=== PATIENT | female | born 1985 | race Caucasian/White ===

== ENCOUNTER 2022-11-04 22:46 | Emergency (ER) | payer MEDICAID, SELFPAY ==
[2022-11-04 22:51] VITALS: BP 144/90; PULSE 97; RESP 18; TEMP 35.8; O2SAT 99
[2022-11-04 23:46] LABS: PCR FLU A Negative PCR FLU A (Negative); PCR FLU B Negative PCR FLU B (Negative); PCR RSV Negative PCR RSV (Negative)
[2022-11-04 23:56] LABS: SARS PCR* POSITIVE SARS-CoV-2 (Negative)
--- NOTE | 2022-11-05 01:30 | ED_ITS ---
HPI - General Adult General Chief complaint: Cough Stated complaint: congestion, cough Time Seen by Provider: 11/04/22 22:54 History of Present Illness HPI narrative: 37-year-old woman presenting to the emergency department with complaint of facial pain like she had been punched in the nose. Apparently this did not actually happen. Has tried TheraFlu and other [id number] treatments she has had in the house. Not clearly tried to decongest. has had some cough now as well. Is not frankly short of breath. Related Data Home Medications Medication Instructions Recorded Confirmed cyclobenzaprine 10 mg tablet 5 - 10 mg PO .QHS PRN 04/02/22 09/14/22 ibuprofen 800 mg tablet 800 mg PO TID PRN 04/02/22 09/14/22 Previous Rx's Medication Instructions Recorded hydrocortisone 1 % topical cream 1 applic topical BID PRN rash 09/14/22 #28.4 grams amoxicillin 875 mg tablet 875 mg PO BID 12 days #24 tabs 11/04/22 Allergies Allergy/AdvReac Type Severity Reaction Status Date / Time No Known Drug Allergies Allergy Verified 09/14/22 16:38 Review of Systems Status of ROS: Reports: 6 or more systems reviewed and unremarkable except as noted in History and below [facility] Medical History (Updated 11/09/22 @ 12:20 by Sher Baires MD) Bright red blood per rectum ?K62.5 - Hemorrhage of anus and rectum (ICD-10) Encounter for removal of intrauterine contraceptive device (IUD) ?Z30.432 - Encounter for removal of intrauterine contraceptive device (ICD- 10) Surgical History (Updated 11/07/22 @ 19:09 by Beau Rodriguez) History of bilateral salpingectomy ?Z90.79 - Acquired absence of other genital organ(s) (ICD-10) History of laparoscopic appendectomy (~06/2020) ?Z90.49 - Acquired absence of other specified parts of digestive tract (ICD- 10) History of laparoscopy ?Z98.890 - Other specified postprocedural states (ICD-10) Status post laparoscopic hysterectomy (~04/2020) ?Z90.710 - Acquired absence of both cervix and uterus (ICD-10) Social History (Updated 11/07/22 @ 19:09 by Beau Rodriguez) Narrative: 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 No erythema or swelling. Occasional rough cough. Sounds a little congested in the nasopharynx. Pleasant. NAD. Well perfused peripherally. Skin is warm and dry without rash on visible skin. Cranial nerves 2-12 intact. Lungs are clear. Heart with elevated rate but in regular rhythm. Oropharynx is moist with some mild erythema in the far posterior but without clear cobblestoning. Neck is supple without lymphadenopathy. TMs are clear. Const: Vital Signs, click to edit/add: Vital Signs - 24 hr 11/04/22 22:51 Temperature 96.5 F L Pulse Rate [Right Pulse Oximeter] 97 Respiratory Rate 18 Blood Pressure [Le ft Upper Arm] 144/90 H Pulse Oximetry 99 Oxygen Delivery Me thod Room Air Documenting provider has reviewed patient's vital signs: yes Course Vital Signs Vital signs: Initial Vital Signs Temperature 96.5 F L 11/04/22 22:51 Temperature Source Temporal Artery Scan 11/04/22 22:51 Pulse Rate 97 11/04/22 22:51 Pulse Rhythm Regular 11/04/22 22:51 Respiratory Rate 18 11/04/22 22:51 Blood Pressure 144/90 H 11/04/22 22:51 Blood Pressure Mean 108 11/04/22 22:51 Blood Pressure Position Sitting 11/04/22 22:51 Pulse Oximetry 99 11/04/22 22:51 Oxygen Delivery Method Room Air 11/04/22 22:51 Vital Signs Temperature 96.5 F L 11/04/22 22:51 Pulse Rate 97 11/04/22 22:51 Respiratory Rate 18 11/04/22 22:51 Blood Pressure 144/90 H 11/04/22 22:51 Pulse Oximetry 99 11/04/22 22:51 Oxygen Delivery Method Room Air 11/04/22 22:51 Temperature 96.5 F L 11/04/22 22:51 Pulse Rate 97 11/04/22 22:51 Respiratory Rate 18 11/04/22 22:51 Blood Pressure 144/90 H 11/04/22 22:51 Pulse Oximetry 99 11/04/22 22:51 Oxygen Delivery Method Room Air 11/04/22 22:51 Medical Decision Making MDM Narrative Medical decision making narrative: Discussion of treatment, she would very much appreciate a cough medication as would really welcome sleep. This seems to be a sinusitis not yet a sinus infection. I do not think pneumonia is the issue here. Will be given prednisone from [facility] along with a codeine-containing cough syrup after discussion of options. Departed pending triple screen. Results of which would not change treatment at this time given duration of illness. See patient discharge plan Lab Data Lab results reviewed: Yes I reviewed the patient's lab results Labs: Lab Results 11/04/22 Range/Units 23:00 SARS-CoV-2 (PCR) POSITIVE SARS-CoV-2 A (Negative) Influenza Type A (PCR) Negative PCR FLU A (Negative) Influenza Type B (PCR) Negative PCR FLU B (Negative) RSV (PCR) Negative PCR RSV (Negative) Discharge Plan Discharge Clinical Impression: URI (upper respiratory infection), Cough, Sinusitis, COVID-19 Patient Disposition: Home, Self-Care Condition: Stable Additional Instructions: Focus on hydration. Sleep under the mist of a cool mist humidifier. Menthol vapors might be helpful. Can take 600-800 mg of ibuprofen per dose or up to 1000 mg of acetaminophen per dose. Anesthetic throat lozenges or sprays like Sucrets or Chloraseptic might be helpful. Sucking on ice chips might also be helpful with the cough. I would get yourself some 12 hour pseudoephedrine for drying/decongestion. I tend to take it every 10 hours or so if really needed. I am hopeful that between this and the prednisone from [facility], you should be feeling better in a couple of days. If not improved, antibiotic prescription will be waiting at your pharmacy. Cough syrup also from [facility]. Take 60 mg of prednisone for the 1st dose then 40 mg daily days 2 through 5. We will call you if any of your tests are positive. Prescriptions: New amoxicillin 875 mg tablet 875 mg PO BID 12 Days Qty: 24 0RF No Action hydrocortisone 1 % cream 1 applic topical BID PRN (Reason: rash) Qty: 28.4 0RF cyclobenzaprine 10 mg tablet 5 - 10 mg PO .QHS PRN ibuprofen 800 mg tablet 800 mg PO TID PRN Follow Up/Referrals: Sonali Gregg DNP [Nurse Practitioner] - Stand Alone Forms: [employer] Info Instructions
== END 2022-11-04 23:25 | disposition home or self-care (01) ==
PROVIDERS: Emergency Provider Family Medicine; PCP Family Medicine
DX: U07.1 COVID-19 (principal); J32.9 Chronic sinusitis, unspecified; J06.9 Acute upper respiratory infection, unspecified; R05.9 Cough, unspecified
CPT/HCPCS: 87502; 87634; 87635; 99283; 99284

== ENCOUNTER 2023-05-27 16:08 | Outpatient (CLI) | payer MEDICAID, SELFPAY | END 2023-05-27 16:09 | disposition home or self-care (01) | PROVIDERS: PCP Family Medicine; Visit Provider Family Medicine | DX: Z00.00 Encounter for general adult medical examination without abnormal findings (principal); R53.83 Other fatigue; Z13.6 Encounter for screening for cardiovascular disorders | CPT/HCPCS: 80053; 80061; 84443 ==

== ENCOUNTER 2023-07-05 07:31 | Outpatient (RCR) | payer BC, SELFPAY | END 2023-09-09 15:30 | disposition home or self-care (01) | PROVIDERS: PCP Family Medicine; Visit Provider Family Medicine | DX: M54.50 Low back pain, unspecified (principal); M54.2 Cervicalgia; M25.512 Pain in left shoulder; M79.602 Pain in left arm; R53.1 Weakness; M25.812 Other specified joint disorders, left shoulder; Z51.89 Encounter for other specified aftercare | CPT/HCPCS: 97110; 97161 ==

== ENCOUNTER 2023-08-17 20:20 | Emergency (ER) | payer BC, SELFPAY ==
[2023-08-17 20:53] VITALS: BP 128/83; PULSE 80; RESP 18; TEMP 37.1; O2SAT 97
[2023-08-17 21:47] LABS: PCR FLU A Negative PCR FLU A (Negative); PCR FLU B Negative PCR FLU B (Negative); PCR RSV Negative PCR RSV (Negative)
[2023-08-17 21:51] LABS: SARS PCR* Negative SARS-CoV-2 (Negative)
--- NOTE | 2023-08-17 22:31 | CRLHL7_ITS ---
For Patients: As a result of the Century Cures Act, medical imaging exams and procedure reports are released immediately into your electronic medical record. You may view this report before your referring provider. If you have questions, please contact your health care provider. INDICATION: Headache, neck pain. TECHNIQUE: CTA head with contrast bolus tracking, 3D angiographic rendering using maximum intensity projection (MIP) and images permanently archived. FINDINGS: There is normal opacification of the intracranial vasculature. There is no large vessel occlusion. No aneurysm is identified. IMPRESSION: Unremarkable head CTA. Please note that all CT scans at this facility use dose modulation, iterative reconstruction, and/or weight-based dosing when appropriate to reduce radiation dose to as low as reasonably achievable. Dictated by Richard Ward MD @ 08/18/2023 7:35:21 AM (Electronically Signed)
--- NOTE | 2023-08-17 22:31 | CRLHL7_ITS ---
For Patients: As a result of the Century Cures Act, medical imaging exams and procedure reports are released immediately into your electronic medical record. You may view this report before your referring provider. If you have questions, please contact your health care provider. INDICATION: Headache, neck pain TECHNIQUE: CT Head without i.v. contrast. Coronal and sagittal reformats were obtained. COMPARISON: 08/20/2021 FINDINGS: CSF space: The ventricles are normal for age. Brain: No evidence of mass, acute infarction or hemorrhage is seen. No mass-effect or midline shift is seen. The brain parenchyma is otherwise normal in appearance with preservation of the carrington-white matter junction. Calvarium: The visualized paranasal sinuses are well aerated. The mastoid air cells are clear. The visualized orbits are grossly unremarkable. The calvarium is unremarkable in appearance with no fractures identified. IMPRESSION: 1. No evidence of acute infarction, intracranial hemorrhage, or mass-effect seen. Please note that all CT scans at this facility use dose modulation, iterative reconstruction, and/or weight-based dosing when appropriate to reduce radiation dose to as low as reasonably achievable. Dictated by: Ananth Benson MD @ 08/18/2023 00:31:26 (Electronically Signed)
--- NOTE | 2023-08-17 22:31 | CRLHL7_ITS ---
For Patients: As a result of the Century Cures Act, medical imaging exams and procedure reports are released immediately into your electronic medical record. You may view this report before your referring provider. If you have questions, please contact your health care provider. INDICATION: Headache, neck pain. TECHNIQUE: CTA neck with contrast bolus tracking, 3D angiographic rendering using maximum intensity projection (MIP) and images permanently archived. FINDINGS: There is no significant carotid artery stenosis or dissection. There is no significant vertebral artery stenosis or dissection. The cervical spine is in normal alignment. IMPRESSION: 1. No significant carotid or vertebral artery stenosis or dissection. 2. Per preliminary report: Bilateral jugular adenopathy seen with lymph nodes measuring up to 11 mm. Please note that all CT scans at this facility use dose modulation, iterative reconstruction, and/or weight-based dosing when appropriate to reduce radiation dose to as low as reasonably achievable. Dictated by Richard Ward MD @ 08/18/2023 7:36:20 AM (Electronically Signed)
--- NOTE | 2023-08-17 22:50 | ED_ITS ---
HPI - General Adult General Date Seen: 08/17/23 Chief complaint: Headache/Migraine Stated complaint: Severe Headache/pain radiates down neck Time Seen by Provider: 08/17/23 21:28 History of Present Illness HPI narrative: This is a 31 than year old female who is generally healthy. She does have a past history stress, anxiety, low back pain but no other long-term medical conditions such as cancer, diabetes, hypertension or headache syndrome. She presents to the ER today for headache and neck discomfort. She has had a headache for at least 3 days, possibly a little longer. It began gradually a few days ago. No antecedent symptoms such as recent URI. No head trauma. The no fever. No antecedent nasal congestion or symptoms of sinusitis. Her children live with her and they are not sick. She has a all functioning carbon monoxide detector that has not been alarming. About 3 days ago the headache was definitely significant and work across the entire front and top of her head, affecting both sides. Sometimes it gets worse such as when she bends over. It has been getting steadily worse every day since then. She tried to take some ibuprofen for her headache a couple of days ago when she took her daughter to a ski event but it did not really help. She does not really have a cough. Sometimes with the pain severe she feels nauseous which is not vomiting. She has developed some photophobia. No phonophobia. Hearing normal. No focal numbness or weakness in her arms or legs. Sometimes she feels like the pain radiates down the front of her throat in her neck and sometimes on the back of her neck. Although her neck hurts, it is not stiff. She has normal range of motion. She also endorses substantial psychosocial stress. She is going through some strife with her ex related to her children. However she does not relate her headache to that stress. Related Data Previous Rx's Medication Instructions Recorded lorazepam 0.5 mg tablet 0.25 - 0.5 mg (0.5 - 1 x 0.5 mg) 05/27/23 PO QDAY PRN anxiety #14 tabs fluoxetine 10 mg capsule (Prozac) 10 mg PO QDAY #60 caps 06/23/23 fluoxetine 20 mg capsule 20 mg PO QDAY #90 caps 07/13/23 Allergies Allergy/AdvReac Type Severity Reaction Status Date / Time No Known Drug Allergies Allergy Verified 07/13/23 15:39 [facility] Medical History (Updated 08/18/23 @ 00:43 by Tra Martell MD) Lumbar back pain ?M54.50 - Low back pain, unspecified (ICD-10) Depression (12/2022) ?F32.A - Depression, unspecified (ICD-10) Vertigo ?R42 - Dizziness and giddiness (ICD-10) Bright red blood per rectum ?K62.5 - Hemorrhage of anus and rectum (ICD-10) Surgical History (Updated 05/27/23 @ 16:28 by Tiffani Martin MD) History of cholecystectomy (2005) ?Z90.49 - Acquired absence of other specified parts of digestive tract (ICD- 10) Encounter for removal of intrauterine contraceptive device (IUD) ?Z30.432 - Encounter for removal of intrauterine contraceptive device (ICD- 10) Status post laparoscopic hysterectomy (~04/2020) ?Z90.710 - Acquired absence of both cervix and uterus (ICD-10) History of laparoscopic appendectomy (~06/2020) ?Z90.49 - Acquired absence of other specified parts of digestive tract (ICD- 10) History of bilateral salpingectomy (2015) ?Z90.79 - Acquired absence of other genital organ(s) (ICD-10) History of laparoscopy ?Z98.890 - Other specified postprocedural states (ICD-10) Family History (Updated 05/27/23 @ 16:29 by Tiffani Martin MD) Uncle Lung cancer Social History (Updated 05/27/23 @ 16:30 by Tiffani Martin MD) Narrative: 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, 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, 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[place], 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, lives in [place] Lifetime nonsmoker Average 1 alcoholic drink a week Exercise walking and biking 4 times a week No drug use Smoking Status: Never smoker Do you use any of these nicotine containing products: None How often do you have a drink containing alcohol: monthly or less How often do you have six or more drinks on one occasion: Less than monthly AUDIT-C Alcohol total score: 2 Non-prescribed substance use: denies use Little interest or pleasure in doing things: not at all Feeling down, depressed, or hopeless: several days Exam Narrative: Exam Narrative: Constitutional: Appears well-developed and well-nourished. Alert. Conversant. Non toxic. HENT: Head: Atraumatic. No depressed skull fracture, Raccoon Eyes, Parker's sign, or hemotympanum. Face normal. TMs normal Nose: Nose normal. No purulent drainage. No sinus tenderness. Mouth/Throat: Oral mucosa is clear and moist. no trismus. Pharynx normal. Tonsils symmetric. No tonsillar enlargement, erythema, or exudate. Eyes: Conjunctivae normal. EOM normal. Pupils equal, round, and reactive to light. No scleral icterus. Neck: Normal range of motion. Neck supple. No tracheal deviation present. Cardiovascular: Normal rate, regular rhythm. No gallop. No friction rub. No mur mur heard. Symmetric radial artery pulses Pulmonary/Chest: Effort normal. No stridor. No respiratory distress. No wheezes. No rales. No rhonchi . No tenderness. Abdominal: Soft. Bowel sounds normal. No distension. No mass. No tenderness. No rebound. No guarding. Musculoskeletal: RUE: Normal range of motion. No tenderness. No deformity LUE: Normal range of motion. No tenderness. No deformity RLE: Normal range of motion. No edema. No tenderness. No deformity LLE: Normal range of motion. No edema. No tenderness. No deformity Lymph: No cervical adenopathy. Neurological: Mental status normal. Attention normal. Alert and oriented x3. GCS 15. Memory normal. Speech fluent. Cognition normal. Cranial Nerves intact II-XII except I did not formally test gag or visual acuity. EOMI. Palate elevates symmetrically and tongue protrudes in the midline. Strength: 5/5 trapezius on the right and left 5/5 deltoid on the right and left 5/5 biceps on the right and left 5/5 triceps on the right and left 5/5 irrigation equipment installer on the right and left 5/5 thumb opposition on the right and le ft 5/5 finger abduction on the right and le ft 5/5 hip flexors (L3) on the right and le ft 5/5 quadriceps (L4) on the right and lef t 5/5 tibialis anterior on the right and l eft 5/5 EHL (L5) on the right and left 5/5 gastrocnemius (S1) on the right and left 5/5 hamstring on the right and left Sensation intact to light touch in both upper extremities (C4-T1) Sensation intact to light touch in Both lower extremities (L4-S1). Finger to nose and coordination normal Skin: Skin is warm and dry. No rash noted. No pallor. Normal capillary refill. Psychiatric: Normal mood. Normal affect. Const: Vital Signs, click to edit/add: Vital Signs - 24 hr 08/17/23 20:53 Temperature 98.7 F Pulse Rate [Pulse Oximeter] 80 Respiratory Rate 18 Blood Pressure [Ri ght Upper Arm] 128/83 Pulse Oximetry 97 Oxygen Delivery Me thod Room Air Course Course ED Course: Recheck-headache much improved after Toradol and Reglan. Resting in her ER chair in room 4. Vital Signs Vital signs: Initial Vital Signs Temperature 98.7 F 08/17/23 20:53 Temperature Source Temporal Artery Scan 08/17/23 20:53 Pulse Rate 80 08/17/23 20:53 Respiratory Rate 18 08/17/23 20:53 Blood Pressure 128/83 08/17/23 20:53 Blood Pressure Mean 98 08/17/23 20:53 Blood Pressure Position Sitting 08/17/23 20:53 Pulse Oximetry 97 08/17/23 20:53 Oxygen Delivery Method Room Air 08/17/23 20:53 Vital Signs Temperature 98.7 F 08/17/23 20:53 Pulse Rate 80 08/17/23 20:53 Respiratory Rate 18 08/17/23 20:53 Blood Pressure 128/83 08/17/23 20:53 Pulse Oximetry 97 08/17/23 20:53 Oxygen Delivery Method Room Air 08/17/23 20:53 Temperature 98.7 F 08/17/23 20:53 Pulse Rate 80 08/17/23 20:53 Respiratory Rate 18 08/17/23 20:53 Blood Pressure 128/83 08/17/23 20:53 Pulse Oximetry 97 08/17/23 20:53 Oxygen Delivery Method Room Air 08/17/23 20:53 Medications Administered Medications: Discontinued Medications Generic Name Dose Route Start Last Admin Trade Name Freq PRN Reason Stop Dose Admin Ketorolac Tromethamine 15 mg 08/17/23 22:31 08/17/23 23:15 Ketorolac 15 Mg/Ml Inj IVP 08/17/23 22:32 15 mg ONCE ONE Administration Metoclopramide HCl 10 mg 08/17/23 22:31 08/17/23 23:15 Metoclopramide Hcl 5 Mg/Ml Inj IVP 08/17/23 22:32 10 mg ONCE ONE Administration Medical Decision Making MDM Narrative Medical decision making narrative: Ths patient presents with a headache. A broad differential diagnosis was considered including tension, migraine, analgesic rebound, occipital neuralgia, etc. Other less common but serious causes considered included meningitis, encephalitis, subarachnoid bleed, stroke, tumor, etc. patient is much worse than the patient's previous headache. She does not really have a pattern of similar headaches in the past. However was not abrupt in onset or maximal and within 1 hour of onset. Actually involved gradually worsening over a few days. Patient reports that the headache is sometimes worse when she bends over, but not worse with standing to suggest a dural leak headache. No associated with a fever. Although she endorses sometimes the pain from her head it radiates down into her neck she does not actually have neck stiffness or meningismus. White count normal. At this point very low suspicion for meningitis. No concern for carbon monoxide exposure. No recent head trauma to suggest concussion. She has no history of hypercoagulability to raise risk for dural sinus thrombosis. No focal deficits to suggest stroke. With headache associated with neck pain any on female consider possible cervical artery dissection. Head CT and CT are ordered. Head CT scan is normal. CT angiogram shows no vascular abnormality such as cervical artery dissection, aneurysmal disease, or carotid stenosis. CT scan does show adenopathy in the neck which likely would correspond to the patient's neck pain. She is not having any significant pharyngitis or signs of strep. Consider possible mono. Would hold off on Monospot for now given the early course in her illness and high likelihood of false negative today. Discussed with the plan of care. Patient is agreeable to discharge home and will follow-up if ongoing or worsening symptoms. Patients questions were answered and they feel improved after above interventions in ED. Supportive outpatient management is therefore indicated. Headache precautions given for home. Lab Data Labs: Lab Results 08/17/23 08/17/23 Range/Units 20:55 23:05 WBC 9.10 (4.50-11.00) K/uL RBC 4.35 (4.00-5.20) m/uL Hgb 13.0 (12.0-16.0) gm/dL Hct 39.3 (33.0-51.0) % MCV 90 (80-100) fL MCH 30 (26-34) pg MCHC 33 (32-36) gm/dL RDW Coeff of Emanuel 12.1 (11.5-15.5) % Plt Count 377 (140-440) K/uL Neut % (Auto) 66.9 (42.0-72.0) % Lymph % (Auto) 20.8 (20-44) % [place] % (Auto) 9.5 (0.0-11.0) % Eos % (Auto) 1.9 (0.0-7.0) % Baso % (Auto) 0.4 (0.0-3.0) % Neut # (Auto) 6.09 (1.7-7.0) K/uL Lymph # (Auto) 1.89 (0.90-2.90) K/uL [place] # (Auto) 0.90 (0.00-0.90) K/UL Eos # (Auto) 0.17 (0.00-0.50) K/uL Baso # (Auto) 0.04 (0.00-0.30) K/uL Abs Immat Gran (auto) 0.05 (0.00-0.30) K/uL Imm/Tot Granulo (auto) 0.5 % Sodium 139 (135-149) mmol/L Potassium 3.8 (3.6-5.1) mmol/L Chloride 103 (96-114) mmol/L Carbon Dioxide 29 (20-32) mmol/L Anion Gap 7 (7-15) mEq/L BUN 11 (5-24) mg/dL Creatinine 0.6 (0.5-1.5) mg/dL Estimated GFR 118 ml/min Glucose 90 (60-115) mg/dL Calcium 9.7 (8.4-10.6) mg/dL C-Reactive Protein 6.9 H (0.5-1.0) mg/dL HCG, Qual Negative (Negative) SARS-CoV-2 (PCR) Negative SARS-CoV-2 (Negative) Influenza Type A (PCR) Negative PCR FLU A (Negative) Influenza Type B (PCR) Negative PCR FLU B (Negative) RSV (PCR) Negative PCR RSV (Negative) Imaging Data CT scan - head: Attestation: I have reviewed the pertinent imaging results. Radiologist's impression: IMPRESSION: 1. No evidence of acute infarction, intracranial hemorrhage, or mass-effect seen. CT angio head and neck: Attestation: I have reviewed the pertinent imaging results. Radiologist's impression: PRELIMINARY IMPRESSION: 1. The [place] is unremarkable with no significant stenosis, occlusion, or aneurysm identified. 2. The neck vessels shows no evidence of dissection, significant stenosis or occlusion in the common or internal carotid arteries, vertebral arteries, or visualized great vessels of the chest. 3. Bilateral jugular adenopathy seen with lymph nodes measuring up to 11 mm. Discharge Plan Discharge Clinical Impression: Headache Patient Disposition: Home, Self-Care Condition: Stable Instructions: Acute Headache (DC) Prescriptions: No Action fluoxetine 20 mg capsule 20 mg PO QDAY Qty: 90 1RF lorazepam 0.5 mg tablet 0.25 - 0.5 mg PO QDAY PRN (Reason: anxiety) Qty: 14 0RF fluoxetine [Prozac] 10 mg capsule 10 mg PO QDAY Qty: 60 0RF Follow Up/Referrals: Tiffani Martin MD [Primary Care Provider] - Stand Alone Forms: [facility] Info Instructions
[2023-08-17] MEDS: METOCLOPRAMIDE HCL 5 MG/ML INJ 10 MG IVP (23:15)
[2023-08-17] MEDS: KETOROLAC 15 MG/ML inj IVP (23:15)
[2023-08-17 23:21] LABS: Basophils Absolute Auto 0.04 K/uL (0.00-0.30); Basophils Percent Auto 0.4 % (0.0-3.0); Eosinophils Absolute Auto 0.17 K/uL (0.00-0.50); Eosinophils Percent Auto 1.9 % (0.0-7.0); Hematocrit 39.3 % (33.0-51.0); Immature Granulocytes Abs Auto 0.05 K/uL (0.00-0.30); Immature Granulocytes Pct Auto 0.5 %; Lymphocytes Absolute Auto 1.89 K/uL (0.90-2.90); Lymphocytes Percent Auto 20.8 % (20-44); Mean Corpuscular HGB Conc 33 gm/dL (32-36); Mean Corpuscular Hemoglobin 30 pg (26-34); Mean Corpuscular Volume 90 fL (80-100); Monocytes Percent Auto 9.5 % (0.0-11.0); Neutrophils Absolute Auto 6.09 K/uL (1.7-7.0); Neutrophils Percent Auto 66.9 % (42.0-72.0); Platelet Count* 377 K/uL (140-440); RDW Coefficient of Variation % 12.1 % (11.5-15.5); Red Blood Count 4.35 m/uL (4.00-5.20)
[2023-08-17 23:24] LABS: Chloride* 103 mmol/L (96-114); Potassium* 3.8 mmol/L (3.6-5.1); Sodium* 139 mmol/L (135-149)
[2023-08-17 23:26] LABS: Creatinine* 0.6 mg/dL (0.5-1.5); Estimated Glomerular Filt Rate 118 ml/min
[2023-08-17 23:27] LABS: Anion Gap 7 mEq/L (7-15); Blood Urea Nitrogen* 11 mg/dL (5-24); Calcium* 9.7 mg/dL (8.4-10.6); Carbon Dioxide* 29 mmol/L (20-32); Glucose* 90 mg/dL (60-115); Slide Review Reflex No
[2023-08-17 23:30] LABS: C Reactive Protein* 6.9 mg/dL (0.5-1.0)
[2023-08-17 23:33] LABS: HCG Qualitative Serum* Negative (Negative)
== END 2023-08-18 01:14 | disposition home or self-care (01) ==
PROVIDERS: Emergency Provider Emergency Medicine; PCP Family Medicine
DX: R51.9 Headache, unspecified (principal)
CPT/HCPCS: 36415; 70450; 70496; 70498; 80048; 84703; 85025; 86140; 87631; 96374; 96375; 99284; 99285; J1885; J2765; Q9967

== ENCOUNTER 2024-11-06 22:34 | Emergency (ER) | payer OTHER, SELFPAY ==
--- OUTSIDE RECORDS SUMMARY | 2024-11-06 22:37 | XMS_ITS | Clinical Summary ---
Author Organization [facility] Address [address] [place] [address]. [place] [address] Care Team Providers Care Rn Acls Name Role Phone No Ref-Primary, Physician Primary Care Provider Allergies No known active allergies Medications No known medications Social History Tobacco Use Types Packs/Day Years Used Date Smoking Tobacco: Never Assessed Comments Unknown Sex and Gender Information Value Date Recorded Sex Assigned at Not on file Legal Sex Female 10:14 AM TECHNICAL ADJUSTER Gender Identity Not on file Sexual Orientation Not on file Last Filed Vital Signs Vital Sign Reading Time Taken Comments Blood Pressure 135/89 07/26/2019 12:55 AM TECHNICAL ADJUSTER Pulse 111 07/26/2019 12:55 AM TECHNICAL ADJUSTER Temperature 36.8 C (98.2 F) 07/25/2019 9:41 PM TECHNICAL ADJUSTER Respiratory Rate 16 07/25/2019 9:41 PM TECHNICAL ADJUSTER Oxygen Saturation 96% 07/26/2019 12:56 AM TECHNICAL ADJUSTER Inhaled Oxygen Concentration - - Weight - - Height - - Body Mass Index - - Plan of Treatment Not on file Care Teams Rn Acls Relationship Specialty Start Date End Date No Ref-Primary, Physician PCP - General 07/26/19
--- OUTSIDE RECORDS SUMMARY | 2024-11-06 22:37 | XMS_ITS | Clinical Summary ---
Author Organization [facility] Address [address] [place] [address] Care Team Providers Care Rugby Union Footballer Name Role Phone Yasemin Olson MD Primary Care Provider [phone]- [phone] Allergies No known active allergies Medications No known medications Active Problems Problem Noted Date Diagnosed Date Mechanical complication of i ntrauterine contraceptive device 08/02/2015 Resolved Problems Problem Noted Date Diagnosed Date Resolved Date Supervision of other normal 08/17/2012 01/20/2013 Supervision of other normal 07/27/2012 07/27/2012 Positive test 07/27/201202/2013 Overview (07/27/2012): ESSURE present, referral to [facility] for evaluation. Other complications due to g enitourinary device, implant, and graft 07/17/2006 07/25/2012 Immunizations Immunization Administration Dates Next Due DTP 04/06/1991, 8,1986,1986, 1986 Hepatitis B (Peds) 01/30/2002,09/19/2001, 001 Influenza, IIV3 (Age >=3 years) 06/25/2006 MMR 04/23/1998,07/04/1987 Oral Polio Vaccine 03/19/1988,1986, 987,1986 Td (Age >=7 Years) 04/23/1998 Tdap 2011 Family History Relation Name Status Comments Daughter 1 Alive Daughter 2 Alive Father Alive Mother Alive Son Alive Social History Tobacco Use Types Packs/Day Years Used Date Smoking Tobacco: Never Smokeless Tobacco: Never Tobacco Cessation:Counseling Given: Yes Alcohol Use Standard Drinks/Week Comments No 0 (1 standard drink = 0.6 oz pur e alcohol) Comments No Sex and Gender Information Value Date Recorded Sex Assigned at Not on file Legal Sex Female 5:20 AM CUSTOMER DEVELOPMENT MANAGER Gender Identity Not on file Sexual Orientation Not on file Occupation Industry Job Start Date Job End Date 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 Not on file Not on file Not on file Obstetrics History Para Term AB IAB SAB Ectopic Multiple Livin g Live Births 3 2 2 0 1 1 0 0 0 Date Outcome GA Total Labor Labor/2nd/3rd Weight Sex Type Anes PTL Fifi A1 A5 Name Clin 006 Term 37w0 d 2.32 kg (5 lb 2 oz) Vag Comments:oligo, IUGR 009 Term 39w0 d 3.09 kg (6 lb 13 oz) Vag 2012 IAB Last Filed Vital Signs Vital Sign Reading Time Taken Comments Blood Pressure 107/73 01/08/2016 1:30 PM CDT tow er Pulse 77 01/08/2016 1:30 PM CDT Temperature 36.8 C (98.2 F) 01/08/2016 1:30 PM CDT Respiratory Rate 16 06/07/2015 12:01 PM CDT Oxygen Saturation 100% 01/08/2016 1:30 PM CDT Inhaled Oxygen Concentration - - Weight 66 kg (145 lb 6.4 oz) 01/08/2016 1:30 PM CDT Height 157.5 cm (5' 2) 01/08/2016 1:30 PM CDT Body Mass Index 26.59 01/08/2016 1:30 PM CDT Plan of Treatment Health Maintenance Due Date Last Done Comments Hepatitis C screening for age 18-79 2004 BMI (ht and wt on same day) for age 18+ 01/07/2017 01/08/2016 Depression screening for age 12+ 01/07/2017 01/08/2016 Tetanus booster 2021 2011, 04/23/1998 Pap test for age 21-65 02/19/2023 0, 02/20/2020, 03/12/2015, Additional history exists COVID-19 vaccine series (2023- season) 2024 Influenza Vaccine (#1) 2024 06/25/2006 HIV for age 15-65 Completed 08/03/2008 Tdap Completed 2011 Pneumococcal series for age 6-49 Aged Out No longer eligible based on patient's age to complete this topic Procedures Procedure Name Priority Date/Time Associated Diagnosis Comments BIOFUELS PROCESSING TECHNICIAN THIN PREP PAP SCREEN IMAGED Routine 02/20/2020 8:15 AM CDT ANTI HIV 1/2 Routine 08/03/2008 1:48 PM CUSTOMER DEVELOPMENT MANAGER Supervision of Other Normal from Last 3 Months or Most Recently Relevant to Health Maintenance Results * BIOFUELS PROCESSING TECHNICIAN THIN PREP PAP SCREEN IMAGED (02/20/2020 8:15 AM CDT) Case Report Gynecologic Cytology Report Case: [id number] Authorizing Provider: Love Burris PA-C Collected: 02/20/2020 0815 Ordering Location: [facility] Received: 02/21/2020 1528 First Screen: Andrew Guillory Rescreen: Rafaela Ferreira Pathologist: Dana lOson MD Specimen: BIOFUELS PROCESSING TECHNICIAN ThinPrep Vial Screening, Cervical/Vaginal 02/27/2020 11:30 AM CDT [facility] INTERPRETATION/ RESULT NEGATIVE FOR INTRAEPITHELIAL LESION OR MALIGNANCY (NIL) (none) 02/27/2020 11:30 AM CDT [facility] R NON-NEOPLASTIC FINDING(S) Reactive cellular changes associated with inflammation/repa ir 02/27/2020 11:30 AM CDT [facility] ORGANISM(S) Fungal organisms morphologically consistent with Laura species Shift in jeanine suggestive of bacterial vaginosis 02/27/2020 11:30 AM CDT [facility] SPECIMEN ADEQUACY Satisfactory for evaluation No endocervical component seen 02/27/2020 11:30 AM CDT [facility] Date of LMP 02/06/2020 02/27/2020 11:30 AM CDT [facility] Last Pap Date 04/23/2014 02/27/2020 11:30 AM CDT [facility] Last Pap Result NIL 0 11:30 AM CDT [facility] Additional Information 02/27/2020 11:30 AM CDT [facility] Comment: Interpreted at [facility], Central Laboratory - [address], [place] [address] Automated Review Successful 02/27/2020 11:30 AM CDT [facility] Comment:Specimen processed s uccessfully by automated conductor and engineer device, ThinPrep Imaging System, [employer] Note The pap test is a screening technique, not a diagnostic procedure. It is used primarily to screen for squamous cancers and precursor lesions. Published studies have shown that it is subject to both false negative and false positive results. The pap test should not be used as the sole means to diagnose or exclude pre-malignant and malignant lesions. 02/27/2020 11:30 AM CDT [facility] Other (Cervical/Vagina l) 02/20/2020 8:15 AM CDT 02/21/2020 3:28 PM CDT us November L [place] [facility] PATH[facility]/CYTOLOGY Final R esult [facility] [address] [place] [address], [place] * ANTI HIV 1/2 [81893.0] (08/03/2008 1:48 PM CUSTOMER DEVELOPMENT MANAGER) ANTI HIV 1/2 Non-reacti ve [facility] Blood specimen (specimen) BLOOD SPECIMEN / Unknown 08/03/2008 1:48 PM CUSTOMER DEVELOPMENT MANAGER 08/03/2008 1:39 PM CUSTOMER DEVELOPMENT MANAGER Yasemin Olson MD SEND OUTS Final Resu lt [facility] INTERNAL ZIP [phone] [address] from Last 3 Months or Most Recently Relevant to Health Maintenance Care Teams Rugby Union Footballer Relationship Specialty Start Date End Date Yasemin Olson MD [address] [place] [address] PCP - General Family Practice 06/07/15
[2024-11-06 22:46] VITALS: BP 142/94; PULSE 98; RESP 20; TEMP 36.4; O2SAT 98
--- NOTE | 2024-11-06 22:51 | ED_ITS ---
HPI - General Adult General Chief complaint: Cough Stated complaint: chest hurts/difficulty breathing/cough Time Seen by Provider: 11/06/24 22:35 History of Present Illness HPI narrative: Arrives with complaints of chest pain, SOB , and cough for 5 days. Alert and oriented, ABCs intact. 39-year-old woman presenting to the emergency department with concern of head tightness in her chest more on the left side. This is kind of been going on for 5 days but much worse today. Initially she just thought maybe it was some anxiety. She feels more short of breath with exertion. Can feel lightheaded or dizzy when she goes to stand up. Tends not to want to lie all the way back as she thought might be some things going on with my lungs that would be maybe more of a problem. No fever. Today just things escalated and also feels like her voice is going. Does have some pain in her left leg/hip but she says this is a chronic thing. Her back was all messed up she says having gone to the chiropractor today. Otherwise she has not been experiencing new leg pain or swelling. This pain can be particularly bad with raising and abducting her leg on the left Related Data Previous Rx's ?Medication ?Instructions ?Recorded azithromycin 250 mg tablet See Rx Instructions PO .COMPLEX #6 06/07/24 tabs codeine 10 mg-guaifenesin 100 mg/5 5 - 10 ml PO .QHS PRN cough #200 mL 06/07/24 mL oral liquid Allergies Allergy/AdvReac Type Severity Reaction Status Date / Time No Known Drug Allergies Allergy Verified 11/06/24 22:50 Review of Systems Status of ROS: Reports: 6 or more systems reviewed and unremarkable except as noted in History and below [facility] Medical History Lumbar back pain ?M54.50 - Low back pain, unspecified (ICD-10) Depression (12/2022) ?F32.A - Depression, unspecified (ICD-10) Vertigo ?R42 - Dizziness and giddiness (ICD-10) Bright red blood per rectum ?K62.5 - Hemorrhage of anus and rectum (ICD-10) Surgical History History of cholecystectomy (2006) ?Z90.49 - Acquired absence of other specified parts of digestive tract (ICD- 10) Encounter for removal of intrauterine contraceptive device (IUD) ?Z30.432 - Encounter for removal of intrauterine contraceptive device (ICD- 10) Status post laparoscopic hysterectomy (~04/2020) ?Z90.710 - Acquired absence of both cervix and uterus (ICD-10) History of laparoscopic appendectomy (~06/2020) ?Z90.49 - Acquired absence of other specified parts of digestive tract (ICD- 10) History of bilateral salpingectomy (2015) ?Z90.79 - Acquired absence of other genital organ(s) (ICD-10) History of laparoscopy ?Z98.890 - Other specified postprocedural states (ICD-10) Family History Uncle Lung cancer Social History Narrative: 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, 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, 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[place], 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 Does appear little fatigued. Cranial nerves 2-12 are intact. Extraocular movements appear full without nystagmus. Mild increase in respiratory rate intermittently. Is not stridorous. Lungs are clear. Does s ound slightly laryngitic. Sounds a little congested of the nasopharynx as well. Oropharynx is moist. TMs are clear. Heart in elevated rate and regular rhythm. Reproducible tenderness around the left SI joint. Abdomen is soft nontender. Mild discomfort to palpation of the left low chest. Transitions with some apparent pain. Const: Vital Signs, click to edit/add: Vital Signs - 24 hr 11/06/24 22:46 Temperature 97.6 F Pulse Rate [Pulse Oximeter] 98 Respiratory Rate 20 Blood Pressure [Ri ght Upper Arm] 142/94 H Pulse Oximetry 98 Oxygen Delivery Me thod Room Air Documenting provider has reviewed patient's vital signs: yes Course Vital Signs Vital signs: Initial Vital Signs Temperature 97.6 F 11/06/24 22:46 Temperature Source Temporal Artery Scan 11/06/24 22:46 Pulse Rate 98 11/06/24 22:46 Respiratory Rate 20 11/06/24 22:46 Blood Pressure 142/94 H 11/06/24 22:46 Blood Pressure Mean 110 H 11/06/24 22:46 Pulse Oximetry 98 11/06/24 22:46 Oxygen Delivery Method Room Air 11/06/24 22:46 Vital Signs Temperature 97.6 F 11/06/24 22:46 Pulse Rate 98 11/06/24 22:46 Respiratory Rate 20 11/06/24 22:46 Blood Pressure 142/94 H 11/06/24 22:46 Pulse Oximetry 98 11/06/24 22:46 Oxygen Delivery Method Room Air 11/06/24 22:46 Temperature 97.6 F 11/06/24 22:46 Pulse Rate 98 11/06/24 22:46 Respiratory Rate 20 11/06/24 22:46 Blood Pressure 142/94 H 11/06/24 22:46 Pulse Oximetry 98 11/06/24 22:46 Oxygen Delivery Method Room Air 11/06/24 22:46 Medical Decision Making MDM Narrative Medical decision making narrative: I suppose laryngitis or feeling neck throat is affected could be related to pneumothorax or laryngitis from a viral illness that could be also contributing to pleuritis/costochondritis/pericarditis. Otherwise would presume generally inflammatory process contributing to most of the symptoms here today. Anemia? Will do some screening labs and chest x-ray. Labs are reassuring. Low risk for PE by Wells criteria. D-dimer is normal Chest x-ray independently reviewed by me looks to be WNL without infiltrate or pneumothorax. Generally well during time in the emergency department. See patient discharge plan for further discussion See handout on exercises/rehabilitation for sacroiliac joint pain. You may have some pleuritis or costochondritis. Prescribing prednisone from [facility] which hopefully will help your voice as well. And may help your low back sacroiliac joint. Also from [facility] of small quantity of [place] as discussed (Percocet substituted as [place] is out) Please complete your insurance forms so that you might have better, more regular cares. Medical Records Medical records reviewed: Yes I reviewed the patient's medical records Lab Data Lab results reviewed: Yes I reviewed the patient's lab results Labs: Lab Results 11/06/24 11/06/24 Range/Units 22:45 23:20 Hgb 12.7 (12.0-16.0) gm/dL D-Dimer Quant (PE/DVT) 0.11 (0.00-0.50) ug/ml SARS-CoV-2 (PCR) Negative SARS-CoV-2 (Negative) Influenza Type A (PCR) Negative PCR FLU A (Negative) Influenza Type B (PCR) Negative PCR FLU B (Negative) RSV (PCR) Negative PCR RSV (Negative) ECG Data Attestation: I personally reviewed and interpreted this ECG as follows: (Normal sinus rhythm at a rate of 91) Discharge Plan Discharge Clinical Impression: Atypical chest pain, Laryngitis, Pain of left sacroiliac joint Patient Disposition: Home, Self-Care Condition: Stable Additional Instructions: See handout on exercises/rehabilitation for sacroiliac joint pain. You may have some pleuritis or costochondritis. Prescribing prednisone from [facility] which hopefully will help your voice as well. And may help your low back sacroiliac joint. Also from [facility] of small quantity of [place] as discussed (Percocet substituted as [place] is out) Please complete your insurance forms so that you might have better, more regular cares. Prescriptions: No Action codeine-guaifenesin 10-100 mg/5 mL liquid 5 - 10 ml PO .QHS PRN (Reason: cough) Qty: 200 0RF Rx Instructions: Will cause sedation if going to work only take at night, do not drive azithromycin 250 mg tablet See Rx Instructions PO .COMPLEX Qty: 6 0RF Rx Instructions: For 250 mg dose pack: take 500 mg today (day 1), then 250 mg for 4 days (days 2-5) PO Follow Up/Referrals: Tiffani Martin MD [Primary Care Provider] - Stand Alone [facility] Info Inst[facility]
--- NOTE | 2024-11-06 23:00 | CRLHL7_ITS ---
For Patients: As a result of the Century Cures Act, medical imaging exams and procedure reports are released immediately into your electronic medical record. You may view this report before your referring provider. If you have questions, please contact your health care provider. INDICATION: Chest pain, shortness of breath. TECHNIQUE: Chest 2 view. COMPARISON: Chest radiograph 09/25/2021. FINDINGS: Cardiovascular: Heart size and pulmonary vasculature are within normal limits. Lungs and pleural spaces: Lungs are clear without focal consolidation. No sign of pleural effusion. No pneumothorax identified. Bones and soft tissues: Surgical clips right upper quadrant. The bones are unremarkable. IMPRESSION: No acute cardiopulmonary findings. Dictated by Maria Ines Stark MD @ 11/06/2024 11:37:07 PM (Electronically Signed)
--- OUTSIDE RECORDS SUMMARY | 2024-11-06 23:08 | XMS_ITS | Clinical Summary ---
Author Organization [facility] Address [address] [place] [address] Care Team Providers Care Machine Printer Name Role Phone Yasemin Olson MD Primary Care Provider +1- [phone] Allergies No known active allergies Medications No known medications Active Problems Problem Noted Date Diagnosed Date Mechanical complication of i ntrauterine contraceptive device 08/02/2015 Resolved Problems Problem Noted Date Diagnosed Date Resolved Date Supervision of other normal 08/17/2012 01/20/2013 Supervision of other normal 07/27/2012 07/27/2012 Positive test 07/27/201202/2013 Overview (07/27/2012): ESSURE present, referral to [facility] at [facility] for evaluation. Other complications due to g [...] on file Legal Sex Female 5:20 AM CATALYST OPERATOR GASOLINE Gender Identity Not on file Sexual Orientation [...] Procedure Name Priority Date/Time Associated Diagnosis Comments FIELD TEST ENGINEER THIN PREP PAP SCREEN IMAGED Routine 02/20/2020 8:15 AM CDT ANTI HIV 1/2 Routine 08/03/2008 1:48 PM CATALYST OPERATOR GASOLINE Supervision of Other Normal from Last 3 Months or Most Recently Relevant to Health Maintenance Results * FIELD TEST ENGINEER THIN PREP PAP SCREEN IMAGED (02/20/2020 8:15 AM CDT) Case Report Gynecologic Cytology Report Case: [id number] Authorizing Provider: Love Burris PA-C Collected: 02/20/2020 0815 Ordering Location: [facility] Received: 02/21/2020 1528 First Screen: Andrew Guillory Rescreen: Rafaela Ferreira Pathologist: Dana Olson MD Specimen: FIELD TEST ENGINEER ThinPrep Vial Screening, Cervical/Vaginal 02/27/2020 11:30 AM CDT [facility] INTERPRETATION/ RESULT NEGATIVE FOR INTRAEPITHELIAL LESION OR MALIGNANCY (NIL) (none) 02/27/2020 11:30 AM CDT [facility] R NON-NEOPLASTIC FINDING(S) Reactive cellular changes associated with inflammation/repa ir 02/27/2020 11:30 AM CDT [facility] ORGANISM(S) Fungal organisms morphologically consistent with Laura species Shift in jeanine suggestive of bacterial vaginosis 02/27/2020 11:30 AM CDT [facility] SPECIMEN ADEQUACY Satisfactory for evaluation No endocervical component seen 02/27/2020 11:30 AM CDT [facility] Date of LMP 02/06/2020 02/27/2020 11:30 AM CDT [facility] Last Pap Date 04/23/2014 02/27/2020 11:30 AM CDT [facility] Last Pap Result NIL 0 11:30 AM CDT [facility] Additional Information 02/27/2020 11:30 AM CDT [facility] Comment: Interpreted at [facility], Central Laboratory - [address], [place] [address] Automated Review Successful 02/27/2020 11:30 AM CDT [facility] Comment:Specimen processed s uccessfully by automated blind slat stapling machine operator device, ThinPrep Imaging System, [employer] Note The pap test is a [...] and malignant lesions. 02/27/2020 11:30 AM CDT [facility] Other (Cervical/Vagina l) 02/20/2020 8:15 AM CDT 02/21/2020 3:28 PM CDT us November L [place] [facility]/CYTOLOGY Final R esult [facility] [address] [place] [address], [place] * ANTI HIV 1/2 [94450.0] (08/03/2008 1:48 PM CATALYST OPERATOR GASOLINE) ANTI HIV 1/2 Non-reacti ve [facility] Blood specimen (specimen) BLOOD SPECIMEN / Unknown 08/03/2008 1:48 PM CATALYST OPERATOR GASOLINE 08/03/2008 1:39 PM CATALYST OPERATOR GASOLINE Yasemin Olson MD SEND OUTS Final Resu lt [facility] INTERNAL ZIP [phone] [address] from Last 3 Months or Most Recently Relevant to Health Maintenance Care Teams Machine Printer Relationship Specialty Start Date End Date Yasemin Olson MD [address] [place] [address] PCP - General Family Practice 06/07/15
--- OUTSIDE RECORDS SUMMARY | 2024-11-06 23:09 | XMS_ITS | Clinical Summary ---
Author Organization [facility] Address [address] [place] [address]. [place] [address] Care Team Providers Care Core Setter Name Role Phone No Ref-Primary, Physician Primary Care Provider Allergies No known active allergies Medications No known medications Social History Tobacco Use Types Packs/Day Years Used Date Smoking Tobacco: Never Assessed Comments Unknown Sex and Gender Information Value Date Recorded Sex Assigned at Not on file Legal Sex Female 10:14 AM TABLE COVER FOLDER Gender Identity Not on file Sexual Orientation Not on file Last Filed Vital Signs Vital Sign Reading Time Taken Comments Blood Pressure 135/89 07/26/2019 12:55 AM TABLE COVER FOLDER Pulse 111 07/26/2019 12:55 AM TABLE COVER FOLDER Temperature 36.8 C (98.2 F) 07/25/2019 9:41 PM TABLE COVER FOLDER Respiratory Rate 16 07/25/2019 9:41 PM TABLE COVER FOLDER Oxygen Saturation 96% 07/26/2019 12:56 AM TABLE COVER FOLDER Inhaled Oxygen Concentration - - Weight - - Height - - Body Mass Index - - Plan of Treatment Not on file Care Teams Core Setter Relationship Specialty Start Date End Date No Ref-Primary, Physician PCP - General 07/26/19
[2024-11-06 23:29] LABS: Hemoglobin* 12.7 gm/dL (12.0-16.0)
[2024-11-06 23:30] LABS: PCR FLU A Negative PCR FLU A (Negative); PCR FLU B Negative PCR FLU B (Negative); PCR RSV Negative PCR RSV (Negative); SARS PCR* Negative SARS-CoV-2 (Negative)
[2024-11-06 23:54] LABS: D Dimer Quantitative* 0.11 ug/ml (0.00-0.50)
== END 2024-11-07 00:23 | disposition home or self-care (01) ==
PROVIDERS: Emergency Provider Family Medicine; PCP Family Medicine
DX: R07.89 Other chest pain (principal); J04.0 Acute laryngitis; M53.3 Sacrococcygeal disorders, not elsewhere classified
CPT/HCPCS: 36415; 71046; 85018; 85379; 87631; 99284

== ENCOUNTER 2025-01-02 22:59 | Emergency (ER) | payer MEDICAID, SELFPAY ==
--- OUTSIDE RECORDS SUMMARY | 2025-01-02 23:01 | XMS_ITS | Clinical Summary ---
Author Organization [employer] [facility] Address [address] [place] [address] Care Team Providers Care Affiliate Marketing Coordinator Name Role Phone Yasemin Olson MD Primary Care Provider [phone]- [phone] Allergies No known active allergies Medications No known medications Active Problems Problem Noted Date Diagnosed Date Mechanical complication of i ntrauterine contraceptive device 08/02/2015 Resolved Problems Problem Noted Date Diagnosed Date Resolved Date Supervision of other normal 08/17/2012 01/20/2013 Supervision of other normal 07/27/2012 07/27/2012 Positive test 07/27/201202/2013 Overview (07/27/2012): ESSURE present, referral to [facility] [place] for evaluation. Other complications due to g [...] on file Legal Sex Female 5:20 AM PUMP SERVICER Gender Identity Not on file Sexual Orientation [...] Health Maintenance Due Date Last Done Comments Depression screening for age 12+ 1998 Hepatitis C screening for age 18-79 2004 BMI (ht and wt on same day) for age 18+ 01/07/2017 01/08/2016 Tetanus booster 2021 2011, 04/23/1998 Pap test for age 21-65 02/19/2023 0, 02/20/2020, 03/12/2015, Additional history exists COVID-19 vaccine series ( season) 2024 Influenza Vaccine (Season Ended) 2025 06/25/2006 Hepatitis B series for 19+ Completed 01/30, 09/19/2001, 03/25/2001 HIV for age 15-65 Completed 08/03/2008 Tdap Completed 2011 Pneumococcal series for age 6-49 Aged Out No longer eligible based on patient's age to complete this topic Procedures Procedure Name Priority Date/Time Associated Diagnosis Comments BUTT TRIMMER THIN PREP PAP SCREEN IMAGED Routine 02/20/2020 8:15 AM CDT ANTI HIV 1/2 Routine 08/03/2008 1:48 PM PUMP SERVICER Supervision of Other Normal (HC) from Last 3 Months or Most Recently Relevant to Health Maintenance Results * BUTT TRIMMER THIN PREP PAP SCREEN IMAGED (02/20/2020 8:15 AM CDT) Case Report Gynecologic Cytology Report Case: [id number] Authorizing Provider: Love Burris PA-C Collected: 02/20/2020 0815 Ordering Location: [facility] Received: 02/21/2020 1528 First Screen: Andrew Guillory Rescreen: Rafaela Ferreira Pathologist: Dana Olson MD Specimen: BUTT TRIMMER ThinPrep Vial Screening, Cervical/Vaginal 02/27/2020 11:30 AM CDT [facility] INTERPRETATION/ RESULT NEGATIVE FOR INTRAEPITHELIAL LESION OR MALIGNANCY (NIL) (none) 02/27/2020 11:30 AM CDT [facility] at 1130 CDT OTHER NON-NEOPLASTIC FINDING(S) Reactive cellular changes associated with inflammation/repa ir 02/27/2020 11:30 AM CDT [facility] EN[facility]AT[facility] ORGANISM(S) Fungal organisms morphologically consistent with Laura species Shift in jeanine suggestive of bacterial vaginosis 02/27/2020 11:30 AM CDT [facility] SPECIMEN ADEQUACY Satisfactory for evaluation No endocervical component seen 02/27/2020 11:30 AM CDT [facility] Date of LMP 02/06/2020 02/27/2020 11:30 AM CDT [facility] Last Pap Date 04/23/2014 02/27/2020 11:30 AM CDT [facility] Last Pap Result NIL 0 11:30 AM CDT [facility] Additional Information 02/27/2020 11:30 AM CDT [facility] Comment: Interpreted at [facility] - [address], [place] [address] Automated Review Successful 02/27/2020 11:30 AM CDT [facility] Comment:Specimen processed s uccessfully by automated manager pipeline device, ThinPrep Imaging System, [employer] Note The pap test is a [...] and malignant lesions. 02/27/2020 11:30 AM CDT [facility] Other (Cervical/Vagina l) 02/20/2020 8:15 AM CDT 02/21/2020 3:28 PM CDT us November L [place] [facility] PATH[facility]Y/CYTOLOGY Final R esult [facility] [address] [place] [address], [place] * ANTI HIV 1/2 [44143.0] (08/03/2008 1:48 PM PUMP SERVICER) ANTI HIV 1/2 Non-reacti ve [facility] Blood specimen (specimen) BLOOD SPECIMEN / Unknown 08/03/2008 1:48 PM PUMP SERVICER 08/03/2008 1:39 PM PUMP SERVICER Yasemin Olson MD SEND OUTS Final Resu lt [facility] INTERNAL ZIP [address] [address] from Last 3 Months or Most Recently Relevant to Health Maintenance Care Teams Affiliate Marketing Coordinator Relationship Specialty Start Date End Date Yasemin Olson MD [address] [address] PCP - General Family Practice 06/07/15
[2025-01-02 23:02] VITALS: BP 165/92; PULSE 92; RESP 18; TEMP 36.9; O2SAT 99; BMI 27.9
--- NOTE | 2025-01-02 23:27 | ED.GENADULT ---
HPI - General Adult General Chief complaint: Chest Pain Stated complaint: Chest pain, left pinkie numb, nausea Time Seen by Provider: 01/02/25 23:26 History of Present Illness HPI narrative: patient had a weird thing of the left pinky finger looked black and blue with pain and hot then radiated up into the left side of the chest. feels nauseated and dizziness right away then in the chest. pain in the chest in center to left side of the chest. felt weak and sat down. happened 45 minutes ago . 39-year-old woman presenting to the emergency department with concern of odd sensation up and down the left side of her body. She is not short of breath. Symptoms occurred about an hour ago where she had noticed that the left 5th finger looked black and blue and some pain and was quite hot. Became somewhat nauseated. Lostant discomfort up and down her left side settling with a dull pain in her left chest and some tightness in the left neck. Pulsing pain temporarily into her left leg, foot which has now resolved. She has been experiencing some degree of a headache most the day. Admits to becoming more anxious following this episode having googled for just a second. She laughs and admits she is just a hot mess now. Related Data Home Medications ?Medication ?Instructions ?Recorded ?Confirmed No Known Home Medications 01/02/25 01/02/25 Allergies Allergy/AdvReac Type Severity Reaction Status Date / Time No Known Drug Allergies Allergy Verified 01/02/25 23:10 Review of Systems Status of ROS: Reports: 6 or more systems reviewed and unremarkable except as noted in History and below [facility] Medical History Lumbar back pain ?M54.50 - Low back pain, unspecified (ICD-10) Depression (12/2022) ?F32.A - Depression, unspecified (ICD-10) Vertigo ?R42 - Dizziness and giddiness (ICD-10) Bright red blood per rectum ?K62.5 - Hemorrhage of anus and rectum (ICD-10) Surgical History History of cholecystectomy (2005) ?Z90.49 - Acquired absence of other specified parts of digestive tract (ICD-10) Encounter for removal of intrauterine contraceptive device (IUD) ?Z30.432 - Encounter for removal of intrauterine contraceptive device (ICD-10) Status post laparoscopic hysterectomy (~04/2020) ?Z90.710 - Acquired absence of both cervix and uterus (ICD-10) History of laparoscopic appendectomy (~06/2020) ?Z90.49 - Acquired absence of other specified parts of digestive tract (ICD-10) History of bilateral salpingectomy (2016) ?Z90.79 - Acquired absence of other genital organ(s) (ICD-10) History of laparoscopy ?Z98.890 - Other specified postprocedural states (ICD-10) Family History Uncle Lung cancer Social History Narrative: 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, 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, 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[place], 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, lives in [place] Lifetime nonsmoker Average 1 alcoholic drink a week Exercise walking and biking 4 times a week No drug use Smoking Status: Never smoker Do you use any of these nicotine containing products: None Second hand tobacco smoke exposure: No How often do you have a drink containing alcohol: monthly or less How many standard drinks containing alcohol do you have on a typical day: 1 or 2 How often do you have six or more drinks on one occasion: Less than monthly AUDIT-C Alcohol total score: 2 Non-prescribed substance use: denies use service: No Exam Narrative: Exam Narrative: Pleasant. Laughs easily. Skin is warm and dry. On the palmar surface of the left 5th finger there is some deep bruising that I would think would represent a small ruptured blood vessel. Finger otherwise is not particularly swollen or hot. Has normal function. Well-perfused peripherally. Breathing easily. Lungs are clear. Neck is supple. Not able to reproduce left chest discomfort. Heart in mildly elevated rate in a regular rhythm without murmur rub or gallop. Abdomen is soft and nontender. Const: Vital Signs, click to edit/add: Vital Signs - 24 hr 01/02/25 23:02 01/02/25 23:30 01/03/25 00:00 Temperature 98.4 F Pulse Rate [Pulse Oximeter] 92 86 81 Respiratory Rate 18 18 16 Blood Pressure [Ri ght Upper Arm] 165/92 H 144/85 H 121/79 Pulse Oximetry 99 98 97 Oxygen Delivery Me thod Room Air Room Air Room Air 01/03/25 00:29 Temperature Pulse Rate [Pulse Oximeter] 75 Respiratory Rate 17 Blood Pressure [Ri ght Upper Arm] 121/79 Pulse Oximetry 96 Oxygen Delivery Me thod Room Air Documenting provider has reviewed patient's vital signs: yes Course Vital Signs Vital signs: Initial Vital Signs Temperature 98.4 F 01/02/25 23:02 Temperature Source Temporal Artery Scan 01/02/25 23:02 Pulse Rate 92 01/02/25 23:02 Respiratory Rate 18 01/02/25 23:02 Blood Pressure 165/92 H 01/02/25 23:02 Blood Pressure Mean 116 H 01/02/25 23:02 Blood Pressure Position Sitting 01/02/25 23:02 Pulse Oximetry 99 01/02/25 23:02 Oxygen Delivery Method Room Air 01/02/25 23:02 Vital Signs Temperature 98.4 F 01/02/25 23:02 Pulse Rate 92 01/02/25 23:02 Respiratory Rate 18 01/02/25 23:02 Blood Pressure 165/92 H 01/02/25 23:02 Pulse Oximetry 99 01/02/25 23:02 Oxygen Delivery Method Room Air 01/02/25 23:02 Temperature 98.4 F 01/02/25 23:02 Pulse Rate 75 01/03/25 00:29 Respiratory Rate 17 01/03/25 00:29 Blood Pressure 121/79 01/03/25 00:29 Pulse Oximetry 96 01/03/25 00:29 Oxygen Delivery Method Room Air 01/03/25 00:29 Medications Administered Medications: Discontinued Medications Generic Name Dose Route Start Last Admin Trade Name Adryanq PRN Reason Stop Dose Admin Diazepam 2.5 mg 01/02/25 23:37 01/03/25 00:15 Diazepam 5 Mg/Ml Inj IV 01/02/25 23:38 2.5 mg ONCE ONE Administration Sodium Chloride 500 mls @ 500 mls/hr 01/02/25 23:37 01/03/25 00:15 0.9 % Sodium Chloride 500 Ml IV 01/03/25 00:36 500 mls/hr .Q1H ONE Administration Ketorolac Tromethamine 15 mg 01/02/25 23:37 01/03/25 00:15 Ketorolac 15 Mg/Ml Inj IVP 01/02/25 23:38 15 mg ONCE ONE Administration Medical Decision Making MDM Narrative Medical decision making narrative: Puzzling constellation of symptoms. Does seem to have ruptured a little blood vessel in her finger. Otherwise strange unilateral response. Does not appear to be demonstrating any deficits to suggest stroke like event. Atypical migraine/headache? Chest discomfort appears relatively minor. I would consider treating her for her headache. She does admit to having had a panic attack in the past but this does not seem like that. I would offer a little bit of Valium. Watch on monitor for any evidence of arrhythmia/dysrhythmia. Doubtful seizure. EKG independently reviewed by me shows normal sinus rhythm rate of 83. No acute ischemic changes. EKG looks identical to October of this year on record. Overall improved following treatment in time in the emergency department. Labs are reassuring. No events on monitor. She is much more relaxed. No red flags in initial evaluation. Medical Records Medical records reviewed: Yes I reviewed the patient's medical records Lab Data Lab results reviewed: Yes I reviewed the patient's lab results Labs: Lab Results 01/02/25 01/03/25 Range/Units 00:04 00:04 Hgb 12.8 (12.0-16.0) gm/dL Sodium 140 (135-149) mmol/L Potassium 3.7 (3.6-5.1) mmol/L Chloride 105 (96-114) mmol/L Carbon Dioxide 26 (20-32) mmol/L Anion Gap 9 (7-15) mEq/L BUN 12 (5-24) mg/dL Creatinine 0.7 (0.5-1.5) mg/dL Estimated Creat Clear 90.14 Estimated GFR 113 ml/min Glucose 95 (60-115) mg/dL Calcium 9.4 (8.4-10.6) mg/dL Troponin I < 0.01 (0.01-0.04) ng/mL C-Reactive Protein < 0.5 L (0.5-1.0) mg/dL POC Troponin I 0.00 L (0.01-0.04) ng/ml Discharge Plan Discharge Clinical Impression: Hypesthesia, Headache Patient Disposition: Home, Self-Care Condition: Improved Additional Instructions: As a said, not exactly sure what happened here. I am happy your headache is improved. Consider icing your left 5th finger a couple of times daily over the next few days. Return as needed. Prescriptions: No Action No Known Home Medications Follow Up/Referrals: Tiffani Martin MD [Primary Care Provider, Family Practice] Stand Alone Forms: [employer] Info Instructions
[2025-01-02 23:30] VITALS: BP 144/85; PULSE 86; RESP 18; O2SAT 98
--- OUTSIDE RECORDS SUMMARY | 2025-01-02 23:47 | XMS_ITS | Clinical Summary ---
Author Organization [employer] [facility] Address [address] [place] [address] Care Team Providers Care Soap Boiler Name Role Phone Yasemin Olson MD Primary Care Provider +1- [phone] Allergies No known active allergies Medications No known medications Active Problems Problem Noted Date Diagnosed Date Mechanical complication of i ntrauterine contraceptive device 08/02/2015 Resolved Problems Problem Noted Date Diagnosed Date Resolved Date Supervision of other normal 08/17/2012 01/20/2013 Supervision of other normal 07/27/2012 07/27/2012 Positive test 07/27/201202/2013 Overview (07/27/2012): ESSURE present, referral to [facility] [place] for evaluation. 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 Gender Identity Not on file Sexual Orientation [...] Procedure Name Priority Date/Time Associated Diagnosis Comments ARCHITECTURAL EXAMINER THIN PREP PAP SCREEN IMAGED Routine 02/20/2020 8:15 AM CDT ANTI HIV 1/2 Routine 08/03/2008 1:48 PM FLAME PLANER Supervision of Other Normal (HC) from Last 3 Months or Most Recently Relevant to Health Maintenance Results * ARCHITECTURAL EXAMINER THIN PREP PAP SCREEN IMAGED (02/20/2020 8:15 AM CDT) Case Report Gynecologic Cytology Report Case: [id number] Authorizing Provider: Love Burris PA-C Collected: 02/20/2020 0815 [facility] Received: 02/21/2020 1528 First Screen: Andrew Guillory Rescreen: Rafaela Ferreira Pathologist: Dana Olson MD Specimen: ARCHITECTURAL EXAMINER ThinPrep Vial Screening, Cervical/Vaginal 02/27/2020 11:30 AM CDT [facility] INTERPRETATION/ RESULT NEGATIVE FOR INTRAEPITHELIAL LESION OR MALIGNANCY (NIL) (none) 02/27/2020 11:30 AM CDT [facility] at 1130 CDT OTHER NON-NEOPLASTIC FINDING(S) Reactive cellular changes associated with inflammation/repa ir 02/27/2020 11:30 AM CDT [facility] ORGANISM(S) Fungal organisms morphologically consistent with Laura species Shift in jeanine suggestive of bacterial vaginosis 02/27/2020 11:30 AM CDT [facility] SPECIMEN ADEQUACY Satisfactory for evaluation No endocervical component seen 02/27/2020 11:30 AM CDT [facility] Date of LMP 02/06/2020 02/27/2020 11:30 AM CDT [facility] Last Pap Date 04/23/2014 02/27/2020 11:30 AM CDT [facility] Last Pap Result NIL 0 11:30 AM CDT [facility] Additional Information 02/27/2020 11:30 AM CDT [facility] Comment: Interpreted at [facility] - [address], [place] [address] Automated Review Successful 02/27/2020 11:30 AM CDT [facility] Comment:Specimen processed s uccessfully by automated wool merchant device, ThinPrep Imaging System, [employer] Note The pap test is a [...] and malignant lesions. 02/27/2020 11:30 AM CDT [facility] Other (Cervical/Vagina l) 02/20/2020 8:15 AM CDT 02/21/2020 3:28 PM CDT us November L [place] [facility] PATHOLOGY/CYTOLOGY Final R esult [facility] [address] [place] [address], [place] * ANTI HIV 1/2 [70601.0] (08/03/2008 1:48 PM FLAME PLANER) ANTI HIV 1/2 Non-reacti ve [facility] Blood specimen (specimen) BLOOD SPECIMEN / Unknown 08/03/2008 1:48 PM FLAME PLANER 08/03/2008 1:39 PM FLAME PLANER Yasemin Olson MD SEND OUTS Final Resu lt [facility] INTERNAL ZIP [address] [address] from Last 3 Months or Most Recently Relevant to Health Maintenance Care Teams Soap Boiler Relationship Specialty Start Date End Date Yasemin Olson MD [address] [address] PCP - General Family Practice 06/07/15
--- OUTSIDE RECORDS SUMMARY | 2025-01-02 23:47 | XMS_ITS | Clinical Summary ---
Author Organization [facility] Address [address] [place] [address]. 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 Gender Identity Not on file Sexual Orientation Not on file Last Filed Vital Signs Vital Sign Reading Time Taken Comments Blood Pressure 135/89 07/26/2019 12:55 AM WASTE DISPOSAL ATTENDANT Pulse 111 07/26/2019 12:55 AM WASTE DISPOSAL ATTENDANT Temperature 36.8 C (98.2 F) 07/25/2019 9:41 PM WASTE DISPOSAL ATTENDANT Respiratory Rate 16 07/25/2019 9:41 PM WASTE DISPOSAL ATTENDANT Oxygen Saturation 96% 07/26/2019 12:56 AM WASTE DISPOSAL ATTENDANT Inhaled Oxygen Concentration - - Weight - - Height - - Body Mass Index - - Plan of Treatment Not on file Care Teams Sales Clerk Relationship Specialty Start Date End Date No Ref-Primary, Physician PCP - General 07/26/19
[2025-01-03] VITALS: BP 121/79; PULSE 81; RESP 16; O2SAT 97
[2025-01-03] MEDS: KETOROLAC 15 MG/ML inj IVP (00:15)
[2025-01-03] MEDS: diazePAM 5 MG/ML inj 2.5 MG IV (00:15)
[2025-01-03] MEDS: 0.9 % SODIUM CHLORIDE 500 ML 500 ML IV (00:15)
[2025-01-03 00:22] LABS: Hemoglobin* 12.8 gm/dL (12.0-16.0)
[2025-01-03 00:29] VITALS: BP 121/79; PULSE 75; RESP 17; O2SAT 96
[2025-01-03 00:37] LABS: Chloride* 105 mmol/L (96-114); Potassium* 3.7 mmol/L (3.6-5.1); Sodium* 140 mmol/L (135-149)
[2025-01-03 00:40] LABS: Blood Urea Nitrogen* 12 mg/dL (5-24); Creatinine* 0.7 mg/dL (0.5-1.5); Est. Creatinine Clearance* 90.14; Estimated Glomerular Filt Rate 113 ml/min
[2025-01-03 00:41] LABS: Anion Gap 9 mEq/L (7-15); Calcium* 9.4 mg/dL (8.4-10.6); Carbon Dioxide* 26 mmol/L (20-32); Glucose* 95 mg/dL (60-115)
[2025-01-03 00:53] LABS: C Reactive Protein* < 0.5 mg/dL (0.5-1.0); Troponin I* < 0.01 ng/mL (0.01-0.04)
== END 2025-01-03 04:02 | disposition home or self-care (01) ==
PROVIDERS: Emergency Provider Family Medicine; PCP Family Medicine
DX: R20.1 Hypoesthesia of skin (principal); R51.9 Headache, unspecified; R07.9 Chest pain, unspecified
CPT/HCPCS: 36415; 80048; 84484; 85018; 85379; 86140; 96374; 99284; J1885; J3360; J7030

== ENCOUNTER 2025-01-30 07:57 | Outpatient (CLI) | payer MEDICAID, OTHER, SELFPAY | END 2025-01-30 07:58 | disposition home or self-care (01) | LOC: NFLDREF 02-02 09:17 | PROVIDERS: PCP Family Medicine; Referring Provider Family Medicine; Visit Provider Family Medicine | DX: Z01.419 Encounter for gynecological examination (general) (routine) without abnormal findings (principal); R53.83 Other fatigue; F41.9 Anxiety disorder, unspecified; Z13.6 Encounter for screening for cardiovascular disorders | CPT/HCPCS: 80053; 80061 ==

== ENCOUNTER 2025-02-02 13:17 | Outpatient (CLI) | payer MEDICAID, OTHER, SELFPAY | END 2025-02-02 13:18 | disposition home or self-care (01) | PROVIDERS: PCP Family Medicine; Visit Provider Family Medicine | DX: Z00.00 Encounter for general adult medical examination without abnormal findings (principal); F41.9 Anxiety disorder, unspecified; R53.83 Other fatigue; Z98.890 Other specified postprocedural states; Z13.21 Encounter for screening for nutritional disorder | CPT/HCPCS: 82607; 82728; 84443 ==

== ENCOUNTER 2025-03-28 15:15 | Outpatient (RCR) | payer BC, SELFPAY ==
--- NOTE | 2025-03-23 15:07 | PT.OPEX ---
PT [place] Outpatient Eval PT [facility] Outpatient Eval Start: 03/14/25 08:32 Freq: Status: Active Protocol: Document 03/21/25 12:59 HEN (Rec: 03/21/25 16:21 HEN No Response) E-signed By Jaquelin Duran DPT Physical Therapy Outpatient Evaluation Insurance Information Recert Due Date 06/18/25 Insurance Name Medicaid Medical Diagnosis M54.50 Low back pain Treating Diagnosis M54.50 Low back pain G89.2: Chronic pain Referring MD Tiffani Martin Subjective Subjective Pt reports chronic history of back pain started after hysterectomy and IUD scar tissue removal ~ 7 years ago, Pt went to PT 3-5 years ago it helped, and symptoms improved. Pt was going to chiropractor and but does not feel like it is helping anymore. Pt report bilateral back and bilateral leg pain ( pins and needles (weekly) , or feels like a pulse of pain down leg. 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 Precautions Treatment PMH: hysterectomy, gall bladder removal, IUD scar Precautions/ tissue removals, depression Contraindications Therapy Limitations/ Not Limited Systems Review Objective Other/Pertinent Lumbar range of motion Objective Flexion 100 % increased pain upon return from flexion Extension 75% bilaterally with increased pain Sidebending 75% bilaterally with increased pain Rotation 100% with increased pain Hip ROM WNL except hip IR 20 on L 40 on R Slump +/- increased pain but no change with neural gl9de JUVENCIO, HAIM, MUSA negative for reproduction of symptoms Laslett cluster: positive for reproduction of symptoms Active SLR positive bilaterally Prone instability test: +/- Functional Test Kirstin: deferred Performed & Score Assessment Assessment/ Patient is a 39 year old with chronic low back pain Impression worsening in last 6 months. Pt demonstrates impaired lumbar range of motion, decreased core and hip strength , and increased pain. These imapirments impact patient' s prolonged standing, walking, sitting, sleeping and participation in ADLs and IADLs. Patient will benefit from skilled physical therapy to address the impairments and activity limitations listed above. Prognosis is fair secondary to chronic nature of symptoms. Primary Functional prolonged standing, walking, sitting, sleeping and Limitations participation in ADLs and IADLs. Plan of Care Rehabilitation Fair Potential Physical Therapy Short term goals 6 weeks Goals 1. Patient will demonstrate independence with initial home exercise program 2. Patient will demonstrate good TA contraction for 10 seconds in order to demonstrate improved core strength ferry terminal supervisor goals 12 weeks 1. Patient will demonstrate independence with finalized home exercise program in order to self-manage condition 2. Patient will score <30 % on modified MIKA to demonstrate decreased pain and difficulty related to lumbar spine 3. Patient will demonstrate 5/5 hip strength in order to improve tolerance with ADLs and IADLs Coordination/ Referral Source Communication With Treatment Plan/ Joint Mobilization Direct Interventions Frequency/Duration 1x/week for 12 weeks Patient Will Be Completion of LTG(s),Skills Plateau,Independent w/HEP Discharged From Therapy Evaluation Billing Untimed Code 25 Treatment Minutes Complexity Low Certification Information Initial 03/21/25 Certification Date Ending Certification 06/18/25 Date Provider Signature Yes Required Provider Signature POC & Medical Necessity Shows Agreement With Physician NPI Number Write NPI# Here Physician Comment/ : Change Physician Signature Please Sign/Date Here & Date Requested
== END 2025-05-23 13:40 | disposition home or self-care (01) ==
PROVIDERS: PCP Family Medicine; Visit Provider Family Medicine
DX: G89.29 Other chronic pain (principal); M54.50 Low back pain, unspecified; Z51.89 Encounter for other specified aftercare
CPT/HCPCS: 97110; 97161